=== PATIENT | male | born 1970 | race African-American/Black ===

== ENCOUNTER 2019-10-01 03:04 | Observation (INO) ==
[2019-10-01] MEDS ORDERED: ZOFRAN IV ONE (03:36)
[2019-10-01] MEDS ORDERED: MORPHINE IV ONE (03:36)
--- NOTE | 2019-10-01 03:36 | PROVIDER DOCUMENTATION ---
HPI-Abdominal Pain/GI Problem - General Chief Complaint: Abdominal Pain Stated Complaint: HERNIA PAIN Time Seen by Provider: 10/01/19 03:26 Source: patient Allergies/Adverse Reactions: Patient Allergies Allergy/AdvReac Type Severity Reaction Status Date / Time No Known Allergies Allergy Verified 09/03/19 07:46 Home Medications: Home Medication List Medication Instructions Recorded Confirmed Last Taken Type NK [No Home Medications] 09/03/19 10/01/19 Unknown History - History of Present Illness-ABD Nature of Presenting Problems: Presents to the with complaints of abdominal pain. He states that he has a hx of left inguinal ernia repair many years ago in 2016. Shortly after that hernia repair he noticed that he got an umbilical hernia. He didnt have the means to get it repaired at the time since he has just taken time off to have the other one repaired and his Dr just told him to monitor it and as long as he can reduce it then it is ok. He states tonight that his pain got worse and he was unable to reduce it. He had a BM this morning but this was before the pain hit. He denies any vomiting but endorses some nausea. Review of Systems - Adult - REVIEW OF SYSTEMS - ADULT Constitutional: reports: see HPI Eyes: reports: no symptoms reported Ears, Nose, Mouth & Throat: reports: no symptoms reported Cardiovascular: reports: no symptoms reported Respiratory: reports: no symptoms reported Gastrointestinal: reports: see HPI, abdominal pain, nausea, other. denies: vomiting Genitourinary: reports: no symptoms reported Musculoskeletal: reports: no symptoms reported Integumentary: reports: no symptoms reported Neurological: reports: no symptoms reported Psychiatric: reports: no symptoms reported Endocrine: reports: no symptoms reported Hematologic/Lymphatic: reports: no symptoms reported Allergic/Immunologic: reports: no symptoms reported All Other Systems: Reviewed and Negative Past History - Adult - PAST MEDICAL HISTORY-ADULT Review of Records: reports: Old Records Reviewed Major Childhood Illnesses: reports: history unknown Cardiovascular: reports: denies history Respiratory: reports: denies history Gastrointestinal: reports: denies history Obstetrical/Gynecological: reports: denies history Genitourinary: reports: denies history Musculoskeletal: reports: denies history Neurological: reports: denies history, degenerative disease Endocrine/Immune: reports: denies history 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) - PRIOR SURGERIES/PROCEDURES Surgical/Procedure History: reports: none, reviewed, not pertinent - PRIOR HOSPITALIZATIONS Prior Hospitalizations: reports: none - IMMUNIZATION STATUS Childhood Immunizations: UTD Flu Vaccine: See Nurse Assessment - FAMILY HISTORY Family History: reviewed, not pertinent Physical Exam-General - PHYSICAL EXAM-ADULT Initial Vital Signs Reviewed: Yes - CONSTITUTIONAL General Appearance: alert, mild distress (uncomfortable appearing, grabbing his abdomen) - HEAD, EARS, NOSE, MOUTH & THROAT HENMT: normocephalic/atraumatic - NECK Neck: supple, normal inspection - RESPIRATORY Respiratory: chest non-tender, lungs clear, normal breath sounds, no respiratory distress, no accessory muscle use - CARDIOVASCULAR Cardiovascular: normal peripheral pulses, regular rate, rhythm, no murmur - GASTROINTESTINAL (ABDOMEN) Abdominal Exam: guarding, hernia (umbilical, nonreducible, very tender to palpation. LImited exam due to patient toleration). negative: distended - MUSCULOSKELETAL Back Exam: normal inspection, no CVA tenderness Extremity: normal range of motion, normal inspection, no pedal edema - SKIN Integumentary: normal color, warm/dry - NEUROLOGIC Neurologic: grossly normal - PSYCHIATRIC Psych/Mental Status: normal mood/affect, oriented x 3 Progress - PLAN OF CARE/RESULTS Progress/Plan/Lab Results: Vital Signs - 8 hr 10/01/19 03:09 Temperature 97.9 F Pulse Rate 93 H Respiratory Rate 18 Blood Pressure 135/83 O2 Sat by Pulse Oximetry 100 Attempted to reduce hernia but patient very tender to touch and unable to tolerate. CT showing incarcerated hernia. Spoke to Dr Dale, general surgeon ethylbenzene converter operator who stated he will come and see the patient in the ED. Recommended ice pack to area. Dr Dale came to ED and attempted to reduce, also unsuccessful and patient unable to tolerate. Patient going to OR. Further orders to be placed by Dr Dale. Result Diagrams: 10/01/19 03:56 10/01/19 03:56 - CT/MRI 1 CT Study: Abdomen Impression: Abnormal, See EMR Report (mid small bowel obstruction secondary to incarceration of short segment mid small bowel within small ventral wall hernia immediately superior to the umbilicus.) - CONSULTS/PCP/HOSPITALIST Notification #1 *Consult/PCP/Hospitalist*: Dr Dale Time Discussed: 05:13 Consult Disposition: Will see in ED (apply ice pack to the area and will see patient in the ED) #2 Consult: Dr Dale Time Discussed: 06:27 Consult Disposition: Admit (Came down to the ED, attempted to reduce and was unsuccessful. Patient also unable to tolerate. GOing to OR. Dr Dale to place admit orders.) Departure - Departure Date of Disposition Decision: 10/01/19 Time of Disposition Decision: 06:27 DIAGNOSIS: Incarcerated hernia, Small bowel obstruction Disposition: ADMITTED INPATIENT 09 Certified Medical Emergency: Emergent Condition: Stable Referrals and Follow-Ups: Alphonso Braswell MD [Primary Care Provider] - - Critical Care Note This patient required my direct & personal management of CC.: No Attestation - Physician/ CHRISTINA Attestation Patient care was provided by Advanced Practice Provider:: No The physician spent face to face time with patient:: Yes Advanced Practice Provider documentation review:: Supervising physician onsite and consulted in the evaluation and care of this patient. The physician did have a face to face encounter with the patient.
[2019-10-01 04:08] LABS: BASO# 0.02 X1000 (0.0-0.2); BASO% 0.4 % (0.0-0.8); EOS# 0.05 X1000 (0.0-0.7); EOS% 0.9 % (0.0-10.0); HEMATOCRIT 42.6 % (42.0-52.0); HEMOGLOBIN 14.4 g/dL (14.0-18.0); LYMPH# 1.23 X1000 (1.2-3.4); LYMPH% 22.2 % (20.5-51.1); MCH 29.1 PG (27-31); MCHC 33.8 g/dL (33-37); MCV 86.1 FL (81-99); MONO# 0.63 X1000 (0.11-0.59); MONO% 11.4 % (1.7-9.3); MPV 9.5 FL (7.4-10.4); NEUT# 3.61 X1000 (1.4-6.5); NEUT% 65.1 % (42.2-75.2); PLT 225 X1000 (130-400); RBC 4.95 XMIL (4.7-6.1); RDW 12.9 % (11.5-14.5); WBC 5.54 X1000 (4.8-10.8)
[2019-10-01 04:22] LABS: INR 0.98; PTT 32.1 Seconds (22.3-41.8)
[2019-10-01 04:24] LABS: AGAP 11; ALB/GLOB RATIO 1.3; ALBUMIN 4.3 g/dL (3.5-5.0); ALKALINE PHOSPHATASE 91 U/L (32-122); BUN 8 mg/dL (8-22); CALCIUM 9.7 mg/dL (8.8-10.2); CHLORIDE 101 mmol/L (98-107); COSMO 278; CREATININE 1.1 mg/dL (0.7-1.2); ESTIMATED GFR > 60; GLUCOSE 104 mg/dL (70-104); GOT 24 U/L (10-34); GPT 16 U/L (10-44); LIPASE 18 U/L (13-60); POTASSIUM 3.8 mmol/L (3.5-5.1); SODIUM 140 mmol/L (136-145); TCO2 28 mmol/L (25-35); TOTAL BILIRUBIN 0.52 mg/dL (0.20-1.00); TOTAL PROTEIN 7.6 g/dL (6.3-8.3)
[2019-10-01] MEDS ORDERED: DILAUDID IV ONE (04:55)
[2019-10-01] MEDS ORDERED: KEFZOL 1 GM/D5W 1 GM/50 ML IVPB IV ONE (06:31)
[2019-10-01] MEDS ORDERED: NS 500 ML IV ONE (06:32)
[2019-10-01] MEDS ORDERED: XYLOCAINE-MPF 2% ONE (07:21)
[2019-10-01] MEDS ORDERED: DIPRIVAN 1% ONE (07:21)
[2019-10-01] MEDS ORDERED: QUELICIN (DOSE) ONE (07:29)
[2019-10-01] MEDS ORDERED: ROBINUL ONE ×2 (07:29→08:35)
[2019-10-01] MEDS ORDERED: ZEMURON ONE (07:30)
[2019-10-01] MEDS ORDERED: VERSED ONE (07:30)
[2019-10-01] MEDS ORDERED: SENSORCAINE 0.25%/EPI 1:200,000 ONE (07:31)
[2019-10-01] MEDS ORDERED: FENTANYL ONE (07:36)
[2019-10-01] MEDS ORDERED: PEPCID ONE (07:36)
[2019-10-01] MEDS ORDERED: DECADRON ONE (07:45)
[2019-10-01] MEDS ORDERED: TORADOL ONE (07:45)
[2019-10-01] MEDS ORDERED: ZOFRAN ONE (07:45)
[2019-10-01] MEDS ORDERED: EPHEDRINE ONE (08:03)
[2019-10-01] MEDS ORDERED: NEOSTIGMINE ONE (08:35)
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
[2019-10-01] MEDS ORDERED: NORCO-10 ONE (08:54)
[2019-10-01] MEDS ORDERED: LR 1,000 ML IV SCH (09:07)
[2019-10-01] MEDS ORDERED: ZOFRAN IV PRN (09:07)
[2019-10-01] MEDS ORDERED: NORCO-10 PO PRN (09:07)
[2019-10-01 09:29] VITALS: BP 124/70
--- NOTE | 2019-10-01 11:18 | HISTORY AND PHYSICAL ---
CHIEF COMPLAINT: Abdominal pain and umbilical hernia. HISTORY OF PRESENT ILLNESS: This is a 48-year-old male previously known to me for open left inguinal hernia repair in 2016, who reports that he developed a bulge with some pain at his umbilicus in 2017 and has been managing it conservatively for the last 2 years by manual reduction and lying supine. It is exacerbated with straining or lifting heavy objects. He also reports some pain and a feeling of fullness when he eats that is quite frequent and associated with the bulge at his umbilicus. He again has been managing this for the last 2 years, able to work and function well until last night he developed a very painful bulge in his umbilicus that would not reduce and the pain was progressive in nature, so he came to the emergency room. It has been constant over the last 12 hours or so and the pain is quite severe. He denies nausea or vomiting. His last bowel movement was yesterday. PAST MEDICAL HISTORY: 1. Left inguinal hernia. 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 3. Umbilical hernia. PAST SURGICAL HISTORY: 1. Open left inguinal hernia repair. 2. Excision of right vocal cord cancer. FAMILY HISTORY: Reviewed and noncontributory. SOCIAL HISTORY: He smokes 1 cigar daily. Denies alcohol or illicit drug use. ALLERGIES: No known drug allergies. CURRENT MEDICATIONS: None. REVIEW OF SYSTEMS: Ten systems reviewed and negative except as noted above. PHYSICAL EXAMINATION: VITAL SIGNS: Temperature 97.9 degrees, pulse 93, respirations 18, blood pressure 135/83. GENERAL: Well-developed, well-nourished male in no distress who looks his stated age. HEENT: Normocephalic, atraumatic. Extraocular muscles intact. Pupils equal, round, reactive to light. Sclerae anicteric. Moist mucous membranes. Hearing grossly normal. NECK: Supple, no supple. No thyromegaly. CV: Regular rate and rhythm. RESPIRATORY: Clear bilateral breath sounds. No work of breathing. LYMPHS: No cervical supraclavicular or periumbilical lymph nodes appreciated. GI: Soft, nondistended, no organomegaly. He does have an incarcerated umbilical hernia. It is very tender to palpation. I did try to reduce it but was unable to. EXTREMITIES: No clubbing, cyanosis, or edema. MUSCULOSKELETAL: Moves all extremities equally and well. SKIN: Warm and dry no rash. LABORATORY: CBC and complete metabolic profile were reviewed and unremarkable. IMAGING: CT of abdomen and pelvis was reviewed by me showing the umbilical hernia with an associated small bowel obstruction. ASSESSMENT/PLAN: 48-year-old male with incarcerated umbilical hernia and small-bowel obstruction. We are proceeding to the operating room for open repair. I did discuss with him the possibility of a bowel resection, recurrent hernia, injury to the bowel, enterocutaneous fistula, wound infection and other imponderables. He understands and agrees to proceed. cc: Alex Dale MD
--- NOTE | 2019-10-01 15:05 | OPERATIVE NOTE ---
PROCEDURE DATE: 10/01/2019 PREOPERATIVE DIAGNOSES: 1. Incarcerated umbilical hernia. 2. Small bowel obstruction. POSTOPERATIVE DIAGNOSES: 1. Incarcerated umbilical hernia. 2. Small bowel obstruction. PROCEDURE: Open repair of incarcerated umbilical hernia. SURGEON: Alex Dale MD CATTLE STICKER: KATE Miranda. ANESTHESIA: General. ESTIMATED BLOOD LOSS: 3 mL. COMPLICATIONS: None apparent. SPECIMENS: Hernia sac. FINDINGS: The patient had an incarcerated supraumbilical hernia containing a loop of small bowel and omentum. The bowel appeared viable. There was no foul odor or foul drainage or murky ascites whatsoever. The bowel had a pink color to the wall. The hernia defect only measured 1 cm in width. TECHNIQUE: He was brought to the operating room and placed supine on the table. General anesthesia was induced. A Hudson catheter was placed. He was prepped and draped in the usual sterile fashion. An incision was made vertically over the incarcerated hernia with a 15 blade down through the dermis sharply. I then continued dissection through the thin subcutaneous tissue with Metzenbaum scissors down to the hernia sac. The edges of the hernia sac at the fascia interface were delineated circumferentially with careful sharp dissection. The bowel then was able to be reduced back in the abdomen. The hernia sac was grasped between hemostats and opened sharply with the Metzenbaum scissors and then I excised the hernia sac from the edges of the fascia with cautery protecting the underlying bowel. I then closed the defect with two 0 TiCron [id number] sutures and closed the subcutaneous tissues with interrupted 3-0 Polysorb and the skin with a running 4-0 subcuticular Biosyn and Steri-Strips. He was awakened in stable condition and transferred to the recovery room without apparent complication. cc: Alex Dale MD
== END 2019-10-01 12:21 | disposition home or self-care (01) ==
LOC: 4N 03:04 → ED 03:04
PROVIDERS: ADMIT Surgery; ATTEND Surgery